=== PATIENT | female | born 1985 | race Caucasian/White ===

== ENCOUNTER 2019-11-01 12:59 | Emergency (ER) | payer OTHER ==
[2019-11-01 13:08] VITALS: TEMP 97.9; BMI 23.1
--- NOTE | 2019-11-01 13:11 | PDOC ---
History of Present Illness - General Chief Complaint: Alcohol intoxication Stated Complaint: N/V INTOX Time Seen by Provider: 11/01/19 13:11 - History of Present Illness Initial Comments: 11/01/19 13:18 34 year old woman with no pmhx who presents with nausea and vomiting after a night of drinking wine and beer last night to celebrate her move to [place]. The patient denies regular or daily alcohol use. She denies abdominal pain, diarrhea, constipation, fever or any other symptoms. She has no other complaitns. ROS GENERAL/CONSTITUTIONAL: No fever or chills. No weakness. CARDIOVASCULAR: No chest pain or shortness of breath RESPIRATORY: No cough, wheezing, or hemoptysis. GASTROINTESTINAL: + nausea, vomiting, No diarrhea or constipation. GENITOURINARY: No dysuria, frequency, or change in urination. MUSCULOSKELETAL: No joint or muscle swelling or pain. No neck or back pain. SKIN: No rash NEUROLOGIC: No headache, vertigo, loss of consciousness, or change in strength/ sensation. PE GENERAL: Awake, alert, and fully oriented, in no acute distress HEAD: No signs of trauma, normocephalic, atraumatic EYES: EOMI, sclera anicteric, conjunctiva clear ENT: oropharynx clear without exudates. Moist mucosa NECK: Normal ROM, supple LUNGS: No distress, speaks full sentences, clear to auscultation bilaterally HEART: Regular rate and rhythm, normal S1 and S2, no murmurs, rubs or gallops, peripheral pulses normal and equal bilaterally. ABDOMEN: Soft, nontender. No guarding, no rebound. No masses EXTREMITIES : Normal inspection, Normal range of motion, no edema. No clubbing or cyanosis. NEUROLOGICAL: Cranial nerves II through XII grossly intact. Normal speech, normal gait, no focal sensorimotor deficits SKIN: Warm, Dry, normal turgor, no rashes or lesions noted MDM DDX including but not limited to: vesalagia r/o ED Course: upreg- negative patient feesl improved after reglan and eager to go home patient po trial successful will f/u with pcp with strict return precuations Rochelle Oconnor, PGY2 Emergency Medicine Past History - Past Medical History Allergies/Adverse Reactions: Allergies Allergy/AdvReac Type Severity Reaction Status Date / Time No Known Allergies Allergy Verified 06/02/16 16:24 Home Medications: Ambulatory Orders Pantoprazole Sodium [Protonix] 40 mg PO DAILY #30 tablet. 04/17/16 Ondansetron [Zofran -] 4 mg PO BID #7 tablet 11/01/19 COPD: No - Immunization History Immunization Up to Date: Yes - Psycho Social/Smoking Cessation Hx Smoking History: Never smoked Hx Alcohol Use: No Drug/Substance Use Hx: No Substance Use Type: None *Physical Exam - Vital Signs Last Vital Signs Temp Pulse Resp BP Pulse Ox 97.9 F 77 18 126/79 100 11/01/19 13:04 11/01/19 13:04 11/01/19 13:04 11/01/19 13:04 11/01/19 13:04 Discharge - Discharge Information Problems reviewed: Yes Clinical Impression/Diagnosis: Vomiting Condition: Stable Disposition: HOME - Admission No - Additional Discharge Information Prescriptions: Ondansetron [Zofran -] 4 mg PO BID #7 tablet - Follow up/Referral - Patient Discharge Instructions Patient Printed Discharge Instructions: How to Beat a Hangover, DI for Vomiting -- Adult Additional Instructions: You were seen in the ED for complaints of vomiting In the ED you were evaluated with labwork Your results were negative There does not appear to be an acute need for immediate hospitalization. You are advised to follow up with your Primary Care Physician within 1 week. Drink plenty of fluids and electrolytes Return to the ED immediately if you experience worsening vomiting, nausea, if you develop fevers, abdominal pain, diarrhea or constipation. - Post Discharge Activity Work/Back to School Note: Back to Work
[2019-11-01] MEDS ORDERED: METOCLOPRAMIDE HCL INJECTION 10 MG/2 ML VIAL IVPUSH ONE (13:13)
[2019-11-01] MEDS ORDERED: SODIUM CHLORIDE 1,000 ML IV SCH (13:15)
[2019-11-01] MEDS ORDERED: METOCLOPRAMIDE HCL INJECTION 10 MG/2 ML VIAL ONE (13:38)
--- NOTE | 2019-11-01 14:15 | PDOC ---
Attending Attestation - Resident Resident Name: Rochelle Oconnor - ED Attending Attestation I have performed the following: I have examined & evaluated the patient, The case was reviewed & discussed with the resident, I agree w/resident's findings & plan - HPI HPI: 11/01/19 14:15 34 year old woman with no pmhx who presents with nausea and vomiting after a night of drinking wine and beer last night to celebrate her move to [place]. The patient denies regular or daily alcohol use. She denies abdominal pain, diarrhea, constipation, fever or any other symptoms. no chest pain or respiratory distress. 11/01/19 14:39 - Physicial Exam PE: 11/01/19 14:14 Agree with the resident's HPI and PE as documented in the electronic medical record. NAD, well appearing, alert, EOMI, PERRL, nl conjunctiva, anicteric; neck supple. lungs clear, RRR, abdomen soft nontender. no rebound, guarding. Back nontender. YBARRA x4, no focal neuro deficits. No peripheral edema. normal color for ethnicity, WWP. clear speech - Medical Decision Making 11/01/19 14:15 Vital Signs Temp Pulse Resp BP Pulse Ox 97.9 F 77 18 126/79 100 11/01/19 13:04 11/01/19 13:04 11/01/19 13:04 11/01/19 13:04 11/01/19 13:04 Vital signs within normals. Well-appearing nontoxic, given Reglan for nausea/ vomiting. Clinically sober, gait is stable. No complaints of pain, no chest pain or shortness of breath or abdominal pain neg preg test no indication for labs/workup or imaging Discharged in stable condition, patient is tolerating oral intake, eager for discharge. rx zofran prn for n/v, from etoh use /hang over. no e/o withdrawal, no e/o intox now. hydration advised. avoid heavy binge drinking due to side effects and addiction, pt amenable and understands. Pt to be discharged in stable condition. Patient made aware of clinical impression, treatment recommendations and disposition plan, return precautions discussed (including but not limited to new or persistent/worsening symptoms, pain, fevers, or signs of infection, chest pain, respiratory distress, inability to tolerate oral intake, dehydration, syncope, or neurologic changes) . Follow up with PMD and/or specialist as recommended, follow up information provided, take medications as instructed for duration of time. continue with supportive care, avoid triggers and precipitants. All questions answered to patient's satisfaction and expressed understanding and comfort with this. At the time of discharge, the patient is alert, clinically improved, tolerating po and verbalizes understanding of instructions, satisfied with the care received and felt comfortable with the plan. Patient does not suffer from an acute life- threatening medical condition at this time and is safe for outpatient follow- up. 11/01/19 14:17 11/01/19 15:29
[2019-11-01 15:03] VITALS: BP 124/75; PULSE 72
== END 2019-11-01 14:35 | disposition home or self-care (01) ==
LOC: JER 12:59
PROC: 3E033GC Introduction of Other Therapeutic Substance into Peripheral Vein, Percutaneous Approach (ICD-10-PCS; principal; 2019-11-01)
DX: R11.10 Vomiting, unspecified (principal)
CPT/HCPCS: 84703; 99283-25; J7030